=== PATIENT | female | born 1955 | race Caucasian/White ===

== ENCOUNTER → 2018-02-16 | Emergency (ER) | payer BC ==
--- OUTSIDE RECORDS SUMMARY | 2018-02-16 22:57 | XMS REPORT ---
Author Author [facility] Address Unknown Phone Unavailable Care Team Providers Care Commission Agent Livestock Name Role Phone TRISH AVILA Unavailable Unavailable RIDGE GOMEZ Unavailable Unavailable MARIA AUGUSTE Unavailable Unavailable Problems This patient has no known problems. Allergies, Adverse Reactions, Alerts This patient has no known allergies or adverse reactions. Medications This patient has no known medications. Results Test Description Test Time Test Comments Text Results Atomic Results Result Comments CBC W/PLT COUNT & AUTO DIFFERENTIAL 2017-05-10 12:32:00 WHITE BLOOD CELL COUNT (BEAKER) (test hciq=473) 6.2 K/ L 4.0-10.0 RED BLOOD CELL COUNT (BEAKER) (test dptf=239) 4.46 M/ L 4.00-5.00 HEMOGLOBIN (BEAKER) (test cukp=630) 13.2 GM/DL 12.0-15.0 HEMATOCRIT (BEAKER) (test tcpj=615) 39.7 % 36.0-45.0 MEAN CORPUSCULAR VOLUME (BEAKER) (test gftx=427) 89.2 fL 82.0-99.0 MEAN CORPUSCULAR HEMOGLOBIN (BEAKER) (test skig=292) 29.7 pg 27.0-33.0 MEAN CORPUSCULAR HEMOGLOBIN CONC (BEAKER) (test ipbw=121) 33.3 GM/DL 32.0- 36.0 RED CELL DISTRIBUTION WIDTH (BEAKER) (test pqim=552) 18.0 % 10.3-14.2 PLATELET COUNT (BEAKER) (test hwsr=508) 281 K/CU MM 150-430 MEAN PLATELET VOLUME (BEAKER) (test uaax=141) 7.8 fL 6.5-10.5 NUCLEATED RED BLOOD CELLS (BEAKER) (test pqoe=924) 0 /100 WBC 0-0 NEUTROPHILS RELATIVE PERCENT (BEAKER) (test tbgp=903) 63 % LYMPHOCYTES RELATIVE PERCENT (BEAKER) (test kzat=202) 28 % MONOCYTES RELATIVE PERCENT (BEAKER) (test zzzg=416) 8 % EOSINOPHILS RELATIVE PERCENT (BEAKER) (test mvgv=740) 1 % BASOPHILS RELATIVE PERCENT (BEAKER) (test hqso=919) 2 % NEUTROPHILS ABSOLUTE COUNT (BEAKER) (test bnwb=172) 3.88 K/ L 1.80-8.00 LYMPHOCYTES ABSOLUTE COUNT (BEAKER) (test mior=791) 1.71 K/ L 1.48-4.50 MONOCYTES ABSOLUTE COUNT (BEAKER) (test qpbp=566) 0.47 K/ L 0.00-1.30 EOSINOPHILS ABSOLUTE COUNT (BEAKER) (test fese=751) 0.04 K/ L 0.00-0.50 BASOPHILS ABSOLUTE COUNT (BEAKER) (test bbgn=935) 0.10 K/ L 0.00-0.20 0.00BASIC METABOLIC [id number] 12:24:00* Test Item Value Reference Range Comments SODIUM (BEAKER) (test nkbb=390) 139 meq/L 136-145 POTASSIUM (BEAKER) (test vtcz=729) 3.5 meq/L 3.5-5.1 CHLORIDE (BEAKER) (test bbhh=685) 103 meq/L 98-107 CO2 (BEAKER) (test vsuc=594) 27 meq/L 22-29 BLOOD UREA NITROGEN (BEAKER) (test otqz=974) 12 mg/dL 7-21 CREATININE (BEAKER) (test jspp=449) 0.76 mg/dL 0.57-1.25 GLUCOSE RANDOM (BEAKER) (test rsqw=326) 84 mg/dL 70-105 CALCIUM (BEAKER) (test trnz=067) 9.4 mg/dL 8.4-10.2 EGFR (BEAKER) (test kdbc=2478) 78 mL/min/1.73 sq m ESTIMATED GFR IS NOT ACCURATE CREATININE CLEARANCE IN PREDICTING GLOMERULAR FILTRATION RATE. ESTIMATED GFR IS NOT APPLICABLE FOR DIALYSIS PATIENTS. [id number] 12:18:00* Test Item Value Reference Range Comments PROTIME (BEAKER) (test pxhf=168) 13.7 seconds 11.7-14.7 INR (BEAKER) (test mvll=084) 1.1 <=5.9 PARTIAL THROMBOPLASTIN TIME (BEAKER) (test aadl=137) 32.5 seconds 22.5-36.0 RECOMMENDED COUMADIN/WARFARIN INR THERAPY RANGESSTANDARD DOSE: 2.0 - 3.0 Includes: PROPHYLAXIS for venous thrombosis, systemic embolization; TREATMENT for venous thrombosis and/or pulmonary embolus.HIGH RISK: Target INR is 2.5-3.5 for patients with mechanical heart valves.VITAMIN B12 AND [id number] 06:47 :00* Test Item Value Reference Range Comments VITAMIN B12 (BEAKER) (test nytz=556) 222 pg/mL 213-816 FOLATE (BEAKER) (test sgbe=404) 14.7 ng/mL >=7.0 Effective 09/08/2014: Folate Reference Range ChangeNew: >=7.0 Previous: >= 5.4HEMOGLOBIN AND [id number] 16:49:00* Test Item Value Reference Range Comments HEMOGLOBIN (BEAKER) (test gifx=807) 8.8 GM/DL 12.0-15.0 HEMATOCRIT (BEAKER) (test hpfs=379) 28.6 % 36.0-45.0 HEMOGLOBIN [id number] 10:46:00* Test Item Value Reference Range Comments HEMOGLOBIN A1C (BEAKER) (test fbrk=698) 5.8 % 4.3-6.1 CBC W/PLT COUNT & AUTO [id number] 09:49:00* Test Item Value Reference Range Comments WHITE BLOOD CELL COUNT (BEAKER) (test xvgy=451) 6.4 K/ L 4.0-10.0 RED BLOOD CELL COUNT (BEAKER) (test sgbx=043) 3.22 M/ L 4.00-5.00 HEMOGLOBIN (BEAKER) (test gwri=139) 8.3 GM/DL 12.0-15.0 HEMATOCRIT (BEAKER) (test uctc=384) 26.0 % 36.0-45.0 MEAN CORPUSCULAR VOLUME (BEAKER) (test rvcj=113) 80.8 fL 82.0-99.0 MEAN CORPUSCULAR HEMOGLOBIN (BEAKER) (test ngqp=587) 25.9 pg 27.0-33.0 MEAN CORPUSCULAR HEMOGLOBIN CONC (BEAKER) (test toeo=286) 32.0 GM/DL 32.0- 36.0 RED CELL DISTRIBUTION WIDTH (BEAKER) (test pozk=866) 16.4 % 10.3-14.2 PLATELET COUNT (BEAKER) (test zbqe=512) 301 K/CU MM 150-430 MEAN PLATELET VOLUME (BEAKER) (test gztx=594) 7.1 fL 6.5-10.5 NUCLEATED RED BLOOD CELLS (BEAKER) (test tmke=052) 0 /100 WBC 0-0 NEUTROPHILS RELATIVE PERCENT (BEAKER) (test jmka=419) 56 % LYMPHOCYTES RELATIVE PERCENT (BEAKER) (test xhch=818) 32 % MONOCYTES RELATIVE PERCENT (BEAKER) (test fzwi=956) 9 % EOSINOPHILS RELATIVE PERCENT (BEAKER) (test ssmt=123) 2 % BASOPHILS RELATIVE PERCENT (BEAKER) (test ywum=177) 1 % NEUTROPHILS ABSOLUTE COUNT (BEAKER) (test ydiy=399) 3.56 K/ L 1.80-8.00 LYMPHOCYTES ABSOLUTE COUNT (BEAKER) (test ptmk=501) 2.06 K/ L 1.48-4.50 MONOCYTES ABSOLUTE COUNT (BEAKER) (test xgej=275) 0.58 K/ L 0.00-1.30 EOSINOPHILS ABSOLUTE COUNT (BEAKER) (test ysgp=676) 0.10 K/ L 0.00-0.50 BASOPHILS ABSOLUTE COUNT (BEAKER) (test swyx=012) 0.06 K/ L 0.00-0.20 [id number] 08:06:00* Test Item Value Reference Range Comments PHOSPHORUS (BEAKER) (test vrza=526) 3.8 mg/dL 2.3-4.7 [id number] 08:06:00* Test Item Value Reference Range Comments MAGNESIUM (BEAKER) (test atrb=359) 2.1 mg/dL 1.6-2.6 BASIC METABOLIC [id number] 08:06:00* Test Item Value Reference Range Comments SODIUM (BEAKER) (test apfn=617) 140 meq/L 136-145 POTASSIUM (BEAKER) (test qnbr=104) 3.8 meq/L 3.5-5.1 CHLORIDE (BEAKER) (test iysf=242) 105 meq/L 98-107 CO2 (BEAKER) (test wqwx=962) 24 meq/L 22-29 BLOOD UREA NITROGEN (BEAKER) (test sffn=243) 6 mg/dL 7-21 CREATININE (BEAKER) (test obly=157) 0.72 mg/dL 0.57-1.25 GLUCOSE RANDOM (BEAKER) (test aqls=147) 90 mg/dL 70-105 CALCIUM (BEAKER) (test oyuw=862) 9.0 mg/dL 8.4-10.2 EGFR (BEAKER) (test ivro=3265) 83 mL/min/1.73 sq m ESTIMATED GFR IS NOT ACCURATE CREATININE CLEARANCE IN PREDICTING GLOMERULAR FILTRATION RATE. ESTIMATED GFR IS NOT APPLICABLE FOR DIALYSIS PATIENTS. LIPID [id number] 08:06:00* Test Item Value Reference Range Comments TRIGLYCERIDES (BEAKER) (test kyrl=356) 148 mg/dL CHOLESTEROL (BEAKER) (test xckb=633) 186 mg/dL HDL CHOLESTEROL (BEAKER) (test cxvt=890) 51 mg/dL LDL CHOLESTEROL CALCULATED (BEAKER) (test cvkd=175) 105 mg/dL Triglyceride Reference Range: Low Risk <150 Borderline 150-199 High Risk 200-499 Very High Risk >=500Cholesterol Reference Range: Low Risk <200 Borderline 200-239 High Risk >240HDL Cholesterol Reference Range: Low Risk >=60 High Risk <40LDL Cholesterol Reference Range: Optimal <100 Near Optimal 100-129 Borderline 130-159 High 160-189 Very High >=190 CALCIUM , [id number] 06:09:00* Test Item Value Reference Range Comments CALCIUM IONIZED (BEAKER) (test heya=968) 1.11 mmol/L 1.12-1.27 PH, BLOOD (BEAKER) (test wzbx=9035) 7.46 IRON, TIBC, % SAT. (WITHOUT FERRITIN)2017-01-18 21:39:00* Test Item Value Reference Range Comments IRON (BEAKER) (test vgld=284) 20 ug/dL 40-160 TOTAL IRON BINDING CAPACITY (BEAKER) (test cori=891) 444 ug/dL 250-450 IRON % SATURATION (2) (BEAKER) (test oavz=6536) 5 % 20-55 [id number] 13:11:00* Test Item Value Reference Range Comments HEMOGLOBIN (BEAKER) (test axaa=790) 8.1 GM/DL 12.0-15.0
--- OUTSIDE RECORDS SUMMARY | 2018-02-16 22:57 | XMS REPORT | Clinical Summary ---
Author Author [facility] Organization [facility] Address Unknown Phone Unavailable Care Team Providers Care Mamma Logist Name Role Phone PCP Unavailable Allergies No Known Allergies Current Medications Prescription Sig. Disp. Refills Start End Date Status Date hydrochlorothiazide Take 25 mg by mouth Active (MICROZIDE) 12.5 mg daily. capsule amLODIPine (NORVASC) 5 MG Take 5 mg by mouth daily. Active tablet divalproex (DEPAKOTE) 500 Take 750 mg by mouth 05/10/20 Discontin MG 24 hr tablet daily. 17 ued zolpidem (AMBIEN) 10 mg Take 10 mg by mouth every 05/10/20 Discontin tablet night as needed for 17 ued Insomnia. clopidogrel (PLAVIX) 75 Take 1 tablet (75 mg 0 11/16/19 05/10/20 Discontin mg tablet total) by mouth every 17 17 ued other day. aspirin 81 MG EC tablet Take 1 tablet (81 mg 30 tablet 1 11/22/19 total) by mouth daily. 17 18 ferrous sulfate 325 (65 Take 1 tablet (325 mg 0 01/21/20 01/21/20 FE) MG tablet total) by mouth 2 (two) 17 18 times daily. pantoprazole (PROTONIX) Take 1 tablet (40 mg 30 tablet 0 01/21/20 40 MG tablet total) by mouth daily. 17 18 Active Problems Problem Noted Date GI bleed 01/18/2017 Gastric ulcer with hemorrhage 01/18/2017 FH: brain aneurysm 01/18/2017 Obesity 01/18/2017 Iron deficiency anemia 01/18/2017 Weakness 11/18/2016 Streptococcus viridans infection 11/18/2016 Bacteremia 11/18/2016 Chest pain, unspecified type 11/14/2016 Nonruptured cerebral aneurysm 11/03/2016 Aneurysm (HCC) 10/22/2016 Overview: cerebral Cerebral aneurysm 09/12/2016 Hypertension Hypertension Encounters Date Type Specialty Care Team Description 05/10/2017 [facility] Trish Avila MD Aneurysm (HCC) Encounter 05/10/2017 Anesthesia Osbaldo Campbell MD Event 05/10/2017 Orders Only Juancarlos Stephenson RN Cerebral aneurysm without rupture 05/10/2017 Procedure Pass 05/10/2017 Surgery Virtual, Surgeon PROCEDURE DONE OUTSIDE OR 05/04/2017 Outside Orders Central Scheduling Trish Avila MD Cerebral aneurysm without rupture (Primary Dx) 03/16/2017 [facility] Renard Turner, JUSTIN (obstructive sleep Encounter apnea) 02/26/2017 Refill General Internal Medicine Mauro Vargas MD after 02/15/2017 Immunizations Name Dates Previously Given Next Due Influenza Three-TIV PF 5+ 11/03/2016 YR Social History Tobacco Use Types Packs/Day Years Used Date Former Smoker Comments: quit 2011 Alcohol Use Drinks/Week oz/Week Comments No Sex Assigned at Date Recorded Not on file Last Filed Vital Signs Vital Sign Reading Time Taken Blood Pressure 132/68 05/10/2017 7:58 PM CDT Pulse 64 05/10/2017 7:58 PM CDT Temperature 36.4 C (97.5 F) 05/10/2017 3:55 PM CDT Respiratory Rate 18 05/10/2017 7:58 PM CDT Oxygen Saturation 98% 05/10/2017 6:15 PM CDT Inhaled Oxygen - - Concentration Weight 98.4 kg (217 lb) 05/10/2017 11:06 AM CDT Height 160 cm (5' 3") 05/10/2017 11:06 AM CDT Body Mass Index 38.44 05/10/2017 11:06 AM CDT Plan of Treatment Not on file Procedures Procedure Name Priority Date/Time Associated Diagnosis Comments PROCEDURE DONE OUTSIDE OR 05/10/2017 CEREBRAL ANEURYSM 11:00 AM CDT Special Needs (REQ:1100) after 02/15/2017 Results * NV cerebral 4 vessel angiogram (05/10/2017 5:14 PM) Specimen Performing Laboratory GE RIS Narrative FINAL REPORT NEUROVASCULAR SURGERY PROCEDURE NOTE DATE OF SERVICE: 05/10/2017 SURGEON: Trish Avila MD FITNESS SALES ASSOCIATE: Rashad Whalen MD PREOPERATIVE DIAGNOSIS: 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 She presents today for interval radiographic follow-up of aneurysm. PROCEDURE: Following explanation of the benefits, risks and alternatives for the procedure, informed consent was obtained from the patient with her family present.The risks including but not limited to stroke, intracranial hemorrhage, vascular injury to the cervical or femoral vessels and groin hematoma were discussed. PROCEDURE: Following explanation of the benefits, risks and alternatives for the procedure, informed consent was obtained from the patient. The risks including but not limited to stroke, intracranial hemorrhage, vascular injury to the cervical or femoral vessels and groin hematoma were discussed with the patient. A time-out was performed. Both groins were prepped in the usual sterile fashion using Chloraprep, and sterilely draped. The skin over the right femoral artery was anesthetized with 1% lidocaine. A single wall puncture of the right femoral artery was performed using a micropuncture set and dilator and a 5-Fr short sheath was inserted into the right common femoral artery and maintained on heparinized flush. A right common femoral artery injection was performed to verify placement. Using coaxial technique, a 5-Fr Angled glide catheter was advanced into the descending aorta, back-bled, and flushed in the usual fashion. Using coaxial technique, the catheter was advanced into the aortic arch, and with the aid of the roadmapping, digital fluoroscopy, and careful guidewire manipulation the right common carotid was catheterized. Digital subtraction angiography using the appropriate rate and volume of contrast in multiple projections was performed. A Matilde CT head was performed at the conclusion of the procedure for post-processing 3-dimensional images of the prior aneurysm after flow diversion remodeling. The catheter was removed. The femoral sheath was removed and hemostasis was achieved with a 6 Bhutanese Angioseal closure device. The patient tolerated the procedure well and was taken to recovery in stable condition. DIAGNOSTIC FINDINGS: RIGHT COMMON FEMORAL ARTERY (DSA - PA, LATERAL) The femoral sheath enters above the bifurcation. There no evidence of common femoral artery stenosis or ulceration. RIGHT COMMON CAROTID ARTERY (DSA - PA, LATERAL - CERVICAL, HEAD) The origins of the right internal and external carotid arteries are widely patent without evidence of ulceration or stenosis. Moderate irregularity is noted in the distal extracranial right ICA. The laterally projecting right cavernous segment aneurysm is no longer visualized with remodeling of the cavernous segment internal carotid along the contour of the flow diversion stent. The right internal carotid is patent. There is no cross filling across the anterior communicating artery into the left anterior cerebral artery territory. The right MCA and EILEEN opacify normally and show no abnormalities.No arteriovenous shunting is noted. No stenosis or vasospasm is observed. No significant abnormalities are seen in the capillary and venous phases. The venous phase demonstrates patent transverse and sigmoid sinuses with dominant drainage through the right transverse-sigmoid sinus. The visualized portions external carotid artery fill without evident abnormalities. SUPERVISION AND INTERPRETATION: Angiographic study demonstrates: 1. No evidence of residual right-sided cavernous segment ICA aneurysm status post flow diversion treatment 2. Otherwise unremarkable selective right common carotid artery angiogram No immediate technical or clinical complications. Signed: Trish Avila MD Report Verified Date/Time:05/14/2017 10:45:43 Reading Location: [facility] Y01 Neuro Angio Reading Room Procedure Note Interface, External Ris In - 05/14/2017 10:47 AM CDT FINAL REPORT NEUROVASCULAR SURGERY PROCEDURE NOTE DATE OF SERVICE: 05/10/2017 SURGEON: Trish Avila MD FITNESS SALES ASSOCIATE: Rashad Whalen MD PREOPERATIVE DIAGNOSIS: 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 She presents today for interval radiographic follow-up of aneurysm. PROCEDURE: Following explanation of the benefits, risks and alternatives for the procedure, informed consent was obtained from the patient with her family present. The risks including but not limited to stroke, intracranial hemorrhage, vascular injury to the cervical or femoral vessels and groin hematoma were discussed. PROCEDURE: Following explanation of the benefits, risks and alternatives for the procedure, informed consent was obtained from the patient. The risks including but not limited to stroke, intracranial hemorrhage, vascular injury to the cervical or femoral vessels and groin hematoma were discussed with the patient. A time-out was performed. Both groins were prepped in the usual sterile fashion using Chloraprep, and sterilely draped. The skin over the right femoral artery was anesthetized with 1% lidocaine. A single wall puncture of the right femoral artery was performed using a micropuncture set and dilator and a 5-Fr short sheath was inserted into the right common femoral artery and maintained on heparinized flush. A right common femoral artery injection was performed to verify placement. Using coaxial technique, a 5-Fr Angled glide catheter was advanced into the descending aorta, back-bled, and flushed in the usual fashion. Using coaxial technique, the catheter was advanced into the aortic arch, and with the aid of the roadmapping, digital fluoroscopy, and careful guidewire manipulation the right common carotid was catheterized. Digital subtraction angiography using the appropriate rate and volume of contrast in multiple projections was performed. A Matilde CT head was performed at the conclusion of the procedure for post-processing 3-dimensional images of the prior aneurysm after flow diversion remodeling. The catheter was removed. The femoral sheath was removed and hemostasis was achieved with a 6 Bh[place]anese Angioseal closure device. The patient tolerated the procedure well and was taken to recovery in stable condition. DIAGNOSTIC FINDINGS: RIGHT COMMON FEMORAL ARTERY (DSA - PA, LATERAL) The femoral sheath enters above the bifurcation. There no evidence of common femoral artery stenosis or ulceration. RIGHT COMMON CAROTID ARTERY (DSA - PA, LATERAL - CERVICAL, HEAD) The origins of the right internal and external carotid arteries are widely patent without evidence of ulceration or stenosis. Moderate irregularity is noted in the distal extracranial right ICA. The laterally projecting right cavernous segment aneurysm is no longer visualized with remodeling of the cavernous segment internal carotid along the contour of the flow diversion stent. The right internal carotid is patent. There is no cross filling across the anterior communicating artery into the left anterior cerebral artery territory. The right MCA and EILEEN opacify normally and show no abnormalities. No arteriovenous shunting is noted. No stenosis or vasospasm is observed. No significant abnormalities are seen in the capillary and venous phases. The venous phase demonstrates patent transverse and sigmoid sinuses with dominant drainage through the right transverse-sigmoid sinus. The visualized portions external carotid artery fill without evident abnormalities. SUPERVISION AND INTERPRETATION: Angiographic study demonstrates: 1. No evidence of residual right-sided cavernous segment ICA aneurysm status post flow diversion treatment 2. Otherwise unremarkable selective right common carotid artery angiogram No immediate technical or clinical complications. Signed: Trish Avila MD Report Verified Date/Time: 05/14/2017 10:45:43 Reading Location: [facility] Y018 Neuro Angio Reading Room * PT/aPTT (05/10/2017 11:54 AM) Component Value Ref Range Protime 13.7 11.7 - 14.7 seconds INR 1.1 <=5.9 PTT 32.5 22.5 - 36.0 seconds Specimen Performing Laboratory [place] [address] Narrative RECOMMENDED COUMADIN/WARFARIN INR THERAPY RANGES STANDARD DOSE: 2.0 - 3.0 Includes: PROPHYLAXIS for venous thrombosis, systemic embolization; TREATMENT for venous thrombosis and/or pulmonary embolus. HIGH RISK: Target INR is 2.5-3.5 for patients with mechanical heart valves. * CBC with platelet count + automated diff (05/10/2017 11:54 AM) Component Value Ref Range WBC 6.2 4.0 - 10.0 K/ L RBC 4.46 4.00 - 5.00 M/ L Hemoglobin 13.2 12.0 - 15.0 GM/DL Hematocrit 39.7 36.0 - 45.0 % MCV 89.2 82.0 - 99.0 fL MCH 29.7 27.0 - 33.0 pg MCHC 33.3 32.0 - 36.0 GM/DL RDW 18.0 (H) 10.3 - 14.2 % Platelets 281 150 - 430 K/CU MM MPV 7.8 6.5 - 10.5 fL nRBC 0 0 - 0 /100 WBC % Neutros 63 % % Lymphs 28 % % Monos 8 % % Eos 1 % % Baso 2 % # Neutros 3.88 1.80 - 8.00 K/ L # Lymphs 1.71 1.48 - 4.50 K/ L # Monos 0.47 0.00 - 1.30 K/ L # Eos 0.04 0.00 - 0.50 K/ L # Baso 0.10 0.00 - 0.20 K/ L Specimen Performing Laboratory Blood [address] [address] Narrative 0.00 * CBC with platelet count + automated diff (05/10/2017 11:54 AM) Specimen Performing Laboratory Blood Narrative The following orders were created for panel order CBC with platelet count + automated diff. Procedure Abnormality Status --------- - ------ CBC with platelet count ...[[id number]]AbnormalFinal result Please view results for these tests on the individual orders. * Basic Metabolic Panel (05/10/2017 11:54 AM) Component Value Ref Range Sodium 139 136 - 145 meq/L Potassium 3.5 3.5 - 5.1 meq/L Chloride 103 98 - 107 meq/L CO2 27 22 - 29 meq/L BUN 12 7 - 21 mg/dL Creatinine 0.76 0.57 - 1.25 mg/dL Glucose 84 70 - 105 mg/dL Calcium 9.4 8.4 - 10.2 mg/dL EGFR 78Comment: ESTIMATED GFR IS NOT ACCURATE mL/min/1.73 sq m CREATININE CLEARANCE IN PREDICTING GLOMERULAR FILTRATION RATE. ESTIMATED GFR IS NOT APPLICABLE FOR DIALYSIS PATIENTS. Specimen Performing Laboratory Blood [address] [address] * ECG 12 lead (05/10/2017 11:20 AM) Specimen Performing Laboratory GE MUSE Narrative Ventricular Rate 60 BPM Atrial Rate 60 BPM P-R Interval 148 ms QRS Duration 96 ms Q-T Interval 436 ms QTC Calculation(Bazett) 436 ms P [place] 18 degrees R Powder[place] -32 degrees T [place] 47 degrees Normal sinus rhythm with sinus arrhythmia Left axis deviation Abnormal ECG Confirmed by MD DAVID, [facility] ([id number]) on 05/11/2017 6:57:43 AM Procedure Note Interface, External Ris In - 05/11/2017 6:57 AM CDT Ventricular Rate 60 BPM Atrial Rate 60 BPM P-R Interval 148 ms QRS Duration 96 ms Q-T Interval 436 ms QTC Calculation(Bazett) 436 ms P [place] 18 degrees R [place] -32 degrees T [place] 47 degrees Normal sinus rhythm with sinus arrhythmia Left axis deviation Abnormal ECG Confirmed by MD DAVID, [facility] ([id number]) on 05/11/2017 6:57:43 AM * POLYSOMNOGRAPHY REPORT - SCAN (04/03/2017 11:02 AM) Only the most recent of 2 results within the time period is included. after 02/15/2017
--- OUTSIDE RECORDS SUMMARY | 2018-02-16 22:57 | XMS REPORT | Clinical Summary ---
Author Author [facility] Address Unknown Phone Unavailable Care Team Providers Care Field Clerk Name Role Phone PCP Unavailable Allergies Not on File Current Medications Prescription Sig. Disp. Refills Start End Date Status Date meloxicam (MOBIC) 15 mg TAKE 1 TABLET BY MOUTH 30 tablet 0 10/01/20 Active tablet DAILY 17 Active Problems Not on file Encounters Date Type Specialty Care Team Description 09/21/2017 Refill Orthopedic Surgery Jose Mcneal Jr., MD after 02/15/2017 Social History Tobacco Use Types Packs/Day Years Used Date Never Assessed Sex Assigned at Date Recorded Not on file Last Filed Vital Signs Not on file Plan of Treatment Health Maintenance Due Date Last Done Comments PAP SMEAR 1977 COLONOSCOPY 2006 MAMMOGRAM 2006 SHINGRIX VACCINE (#1) 2006 ZOSTER VACCINE 2016 INFLUENZA VACCINE 05/22/2018 Results Not on fileafter 02/15/2017 Insurance Payer Benefit Subscriber ID Type Phone Address Plan / Group [employer] xxxxxxxxxxxx HMO CT IN ARE[place]/HMO BLUE ESSENTIALS
== END | disposition left against medical advice (07) ==
LOC: FSED 22:55
DX: Z53.21 Procedure and treatment not carried out due to patient leaving prior to being seen by health care provider (principal)

== ENCOUNTER 2022-11-06 13:37 | Emergency (ER) | payer BC, OTHER ==
[~2022-11-06] VITALS: Ht 160 cm; Wt 80.3 kg
[2022-11-06] MEDS ORDERED: ONDANSETRON HCL INJ 2MG/ML 2ML 2 MG/ML VIAL IV STA (14:11)
[2022-11-06] MEDS ORDERED: SODIUM CHLORIDE 0.9% 1000ML 1,000 ML IV SCH (14:15)
[2022-11-06 14:33] LABS: BASOPHILS % 0.3 % (0.0-1.0); EOSINOPHILS % 0.2 % (0.0-6.0); HEMATOCRIT 43.6 % (34.2-44.1); HEMOGLOBIN 13.6 g/dL (12.0-16.0); LYMPHOCYTES % 30.6 % (18.0-39.1); MEAN CORPUSCULAR HEMOGLOBIN 30.2 pg (28-32); MEAN CORPUSCULAR HGB CONC 31.2 g/dL (31-35); MEAN CORPUSCULAR VOLUME 96.7 fL (81-99); MONOCYTES # (AUTO) 0.5 (0.2-0.8); NEUTROPHILS # (AUTO) 3.9 (2.1-6.9); NEUTROPHILS % 60.4 % (38.7-80.0); PLATELET COUNT 368 x10e3/uL (140-360); RED BLOOD COUNT 4.51 x10e6/uL (3.6-5.1); RED CELL DISTRIBUTION WIDTH 12.8 % (11.7-14.4)
[2022-11-06] MEDS ORDERED: ONDANSETRON HCL INJ 2MG/ML 2ML 2 MG/ML VIAL ONE (14:53)
[2022-11-06] MEDS ORDERED: CEFTRIAXONE 1 GM VIAL ONE (14:54)
[2022-11-06] MEDS ORDERED: SODIUM CHLORIDE 0.9% 1000ML 1,000 ML ONE (14:54)
[2022-11-06] MEDS ORDERED: OXYBUTYNIN CHLOR5 MG PO (15:16)
[2022-11-06] MEDS ORDERED: HYDROCHLOROTHIA25 MG PO (15:17)
[2022-11-06] MEDS ORDERED: NORVASC5 MG PO (15:17)
[2022-11-06] MEDS ORDERED: SEROQUEL25 MG PO (15:18)
[2022-11-06] MEDS ORDERED: TRULICITY0.75 MG/0. (15:19)
[2022-11-06] MEDS ORDERED: ONDANSETRON ODT4 MG PO (16:15)
[2022-11-06] MEDS ORDERED: CEFUROXIME500 MG PO (16:18)
[2022-11-06] MEDS ORDERED: MECLIZINE HCL25 MG PO (16:21)
[2022-11-06 16:50] VITALS: BP 129/71
== END 2022-11-06 16:50 | disposition home or self-care (01) ==
LOC: FSED 13:49
DX: R42 Dizziness and giddiness (principal); N39.0 Urinary tract infection, site not specified; R51.9 Headache, unspecified; R11.0 Nausea; E11.9 Type 2 diabetes mellitus without complications; I10 Essential (primary) hypertension; F31.9 Bipolar disorder, unspecified; R94.31 Abnormal electrocardiogram [ECG] [EKG]
CPT/HCPCS: 36415; 70450; 80048; 80076; 82553; 84484; 85025; 87086; 87186; 93005; 96374; 99284; J0696; J2405; J7030